=== PATIENT | female | born 1980 | race Caucasian/White ===

== ENCOUNTER 2017-08-04 18:52 | Emergency (ER) | payer BC ==
[2017-08-04 19:06] VITALS: BP 119/76
[2017-08-04] MEDS ORDERED: Ondansetron 4 MG/2 ML SDV IVPUSH ONE (20:29)
[2017-08-04] MEDS ORDERED: HYDROmorphone 1 MG/ML Syringe IVPUSH ONE (20:29)
[2017-08-04] MEDS ORDERED: Sodium Chloride 0.9% 10 ML Syringe FLUSH PRN (20:29)
--- NOTE | 2017-08-04 20:42 | EDM.PDOC ---
ED HPI GENERAL MEDICAL PROBLEM - General Chief Complaint: Upper Extremity Injury/Pain Stated Complaint: PAIN R SIDE OF FACE AND BODY Time Seen by Provider: 08/04/17 20:21 Source of Information: Reports: Patient History Limitations: Reports: No Limitations - History of Present Illness INITIAL COMMENTS - FREE TEXT/NARRATIVE: 37-year-old female presents for evaluation and treatment of right shoulder pain. Patient reports that the shoulder pain began last week. She was seen by her chiropractor on Saturday. States that she got some relief. She was told by her chiropractor that she has a lump to her right anterior chest wall. She did not appreciate this herself. She was instructed to follow-up with her primary care provider. Patient presents to the ER today is the right shoulder pain has significantly worsened. She also has not developed numbness and tingling to the right side of her face. Current symptoms include headache, neck pain, right-sided facial numbness and tingling and right shoulder pain. She denies any fevers, unintentional weight loss, unintentional weight gain, chest pain, shortness or breath or vomiting. No trauma to the chest or shoulder. Right Shoulder Pain Score (Numeric/FACES): 7 - Related Data Allergies Allergy/AdvReac Type Severity Reaction Status Date / Time ciprofloxacin [From Cipro] Allergy Hives Verified 08/04/17 19:03 ciprofloxacin HCl Allergy Hives Verified 08/04/17 19:03 [From Cipro] Penicillins Allergy Hives Verified 08/04/17 19:03 Home Meds: Home Meds Cholecalciferol (Vitamin D3) [Vitamin D3] 1,000 units PO DAILY 11/07/16 [History ] Pnv No.122/Iron/Folic Acid [ Multi Tablet] 1 each PO DAILY 11/07/16 [ History] Acetaminophen/oxyCODONE [Percocet 325-5 MG] 2 tab PO Q4H PRN #1 tablet 11/09/16 [Rx] Docusate Sodium [Colace] 100 mg PO Q12H PRN #1 cap 11/09/16 [Rx] Simethicone 80 mg PO PCBED tab.chew 11/09/16 [Rx] Past Medical History Cardiovascular History: Reports: None Respiratory History: Reports: None Gastrointestinal History: Reports: None Genitourinary History: Reports: Renal Calculus, UTI, 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 diab. with other , not this Hematologic History: Reports: Anemia - Past Surgical History GI Surgical History: Reports: Appendectomy, Bariatric Procedure, Cholecystectomy , Hernia Repair/Other Female Surgical History: Reports: Section - History Comment History Comment: 11/07/16 patient current medication list includes vitamens Social & Family History - Family History Family Medical History: Noncontributory - Tobacco Use Smoking Status *Q: Former Smoker Years of Tobacco use: 2 Used Tobacco, but Quit: Yes Month Tobacco Last Used: 01/27 Second Hand Smoke Exposure: No - Caffeine Use Caffeine Use: Reports: None - Alcohol Use Days Per Week of Alcohol Use: 0 - Recreational Drug Use Recreational Drug Use: No Review of Systems - Review of Systems Review Of Systems: See Below Constitutional: Denies: Fever Respiratory: Denies: Shortness of Breath Cardiovascular: Denies: Chest Pain GI/Abdominal: Reports: Nausea. Denies: Abdominal Pain, Vomiting Musculoskeletal: Reports: Neck Pain, Shoulder Pain (right) Skin: Reports: Lumps (right chest ) Neurological: Reports: Headache, Numbness (face), Tingling (face). Denies: Syncope ED EXAM, GENERAL - Physical Exam Exam: See Below Exam Limited By: No Limitations General Appearance: Alert, WD/WN, Moderate Distress Eye Exam: Bilateral Eye: Normal Inspection Ears: Normal External Exam Nose: Normal Inspection Throat/Mouth: Normal Inspection, Normal Voice, No Airway Compromise Head: Atraumatic, Normocephalic Neck: Normal Inspection, Non-Tender, Full Range of Motion Respiratory/Chest: No Respiratory Distress, Lungs Clear, Normal Breath Sounds Cardiovascular: Normal Peripheral Pulses, Regular Rate, Rhythm, No Murmur, Other (right anterior superior lateral chest tender to light palpation; no lump or mass appreciated to the chest or right axilla) GI/Abdominal: Soft, Non-Tender Back Exam: Normal Inspection Extremities: Normal Inspection, Normal Range of Motion, Normal Capillary Refill Neurological: Alert, Oriented, Normal Cognition Psychiatric: Normal Affect, Normal Mood Skin Exam: Warm, Dry, Normal Color EKG INTERPRETATION EKG Date: 08/04/17 Time: 21:10 Rhythm: NSR Rate (Beats/Min): 61 [place]: Normal P-Wave: Present QRS: Normal ST-T: Normal QT: Normal EKG Interpretation Comments: NSR at 61 bpm. First degree AV block. No ischemic changes. Reviewed by myself and Dr. Santos. Course - Vital Signs Last Recorded V/S: Last Vital Signs Temp 36.3 C 08/04/17 19:03 Pulse 77 08/04/17 19:03 Resp 17 08/04/17 19:03 BP 119/76 08/04/17 19:03 Pulse Ox 98 08/04/17 19:03 - Orders/Labs/Meds Labs: Laboratory Tests 08/04/17 08/04/17 08/04/17 Range/Units 21:10 21:10 21:10 WBC 9.28 (3.98-10.04) K/mm3 RBC 5.00 (3.98-5.22) M/mm3 Hgb 10.7 L (11.2-15.7) gm/L Hct 35.7 (34.1-44.9) % MCV 71.4 L (79.4-94.8) fl MCH 21.4 L (25.6-32.2) pg MCHC 30.0 L (32.2-35.5) g/dl RDW Std Deviation 44.5 (36.4-46.3) fL Plt Count 335 (182-369) K/mm3 MPV 10.5 (9.4-12.3) fl Neut % (Auto) 54.2 (34.0-71.1) % Lymph % (Auto) 33.5 (19.3-51.7) % [place] % (Auto) 8.7 (4.7-12.5) % Eos % (Auto) 3.1 (0.7-5.8) Baso % (Auto) 0.4 (0.1-1.2) % Neut # (Auto) 5.02 (1.56-6.13) K/mm3 Lymph # (Auto) 3.11 (1.18-3.74) K/mm3 [place] # (Auto) 0.81 H (0.24-0.36) K/mm3 Eos # (Auto) 0.29 (0.04-0.36) K/mm3 Baso # (Auto) 0.04 (0.01-0.08) K/mm3 Manual Slide Review Abnormal smear D-Dimer, Quantitative 0.38 (0.19-0.59) mg/L Sodium 141 (136-145) mEq/L Potassium 4.1 (3.5-5.1) mEq/L Chloride 105 (98-107) mEq/L Carbon Dioxide 25 (21-32) mEq/L Anion Gap 15.1 H (5-15) BUN 19 H (7-18) mg/dL Creatinine 0.7 (0.55-1.02) mg/dL Est Cr Clr Drug Dosing 109.08 mL/min Estimated GFR (MDRD) > 60 (>60) mL/min BUN/Creatinine Ratio 27.1 H (14-18) Glucose 104 (74-106) mg/dL Calcium 9.2 (8.5-10.1) mg/dL Magnesium 2.0 (1.8-2.4) mg/dl Total Bilirubin 0.2 (0.2-1.0) mg/dL AST 32 (15-37) U/L ALT 69 H (14-59) U/L Alkaline Phosphatase 121 H (46-116) U/L Troponin I < 0.017 (0.00-0.056) ng/mL Total Protein 7.4 (6.4-8.2) g/dl Albumin 3.5 (3.4-5.0) g/dl Globulin 3.9 gm/dL Albumin/Globulin Ratio 0.9 L (1-2) TSH 3rd Generation 5.034 H (0.358-3.74) uIU/mL Meds: Medications Discontinued Medications Generic Name Dose Route Start Last Admin Trade Name Freq PRN Reason Stop Dose Admin Diphenhydramine HCl 50 mg 08/04/17 23:23 08/04/17 23:30 Benadryl IVPUSH 08/04/17 23:24 50 mg ONETIME ONE Administration Haloperidol Lactate 2.5 mg 08/04/17 23:23 08/04/17 23:29 Haldol IVPUSH 08/04/17 23:24 2.5 mg ONETIME ONE Administration Hydromorphone HCl 1 mg 08/04/17 20:29 08/04/17 20:34 Dilaudid IVPUSH 08/04/17 20:30 1 mg ONETIME ONE Administration Ketorolac Tromethamine 30 mg 08/04/17 22:00 08/04/17 22:05 Toradol IVPUSH 08/04/17 22:01 30 mg ONETIME ONE Administration Ondansetron HCl 4 mg 08/04/17 20:29 08/04/17 20:47 Zofran IVPUSH 08/04/17 20:30 4 mg ONETIME ONE Administration Sodium Chloride 10 ml 08/04/17 20:29 08/04/17 21:54 Saline Flush FLUSH 10 ml ASDIRECTED PRN Administration Keep Vein Open - Radiology Interpretation Free Text/Narrative:: CT of the head without contrast impression per [facility] normal head/brain. CT of the cervical spine without contrast impression for [facility] normal cervical spine. chest x-ray shows no acute intrathoracic process. - Re-Assessments/Exams Free Text/Narrative Re-Assessment/Exam: 08/04/17 22:00 I reviewed the imaging, EKG and lab results with the patient. Reports that the shoulder pain has significantly improved but is starting to come back. She continues to have a headache. will try using Toradol at this time. 08/04/17 23:[address] Santos. Feels she is likely having an atypical migraine. Recommended haldol and benadryl Patient reports she continues to have a migraine despite the Dilaudid and Toradol. Will try Haldol and Benadryl. 08/04/17 23:33 At this point the patient feels comfortable going home. Discharge instructions as documented. Departure - Departure Time of Disposition: 23:33 Disposition: Home, Self-Care 01 Condition: Fair Clinical Impression: Atypical migraine - Discharge Information Instructions: Migraine Headache, [id number] Referrals: Lili Nielson NP [Primary Care Provider] - Forms: ED Department Discharge Additional Instructions: [id number] Tylenol or Motrin as needed for pain relief. Follow up with your primary care provider in 1-2 weeks for recheck of your symptoms and for further migraine management. Go home and rest in a dark quiet room. make sure you are drinking plenty of fluids. Please return to the ER if your symptoms change or worsen.
[2017-08-04] MEDS ORDERED: Ketorolac 30 MG/ML SDV IVPUSH ONE (22:00)
[2017-08-04] MEDS ORDERED: Haloperidol Lactate 5 MG/ML SDV IVPUSH ONE (23:23)
[2017-08-04] MEDS ORDERED: diphenhydrAMINE 50 MG/ML SDV IVPUSH ONE (23:23)
--- NOTE | 2017-08-05 11:30 | CT ---
Head CT Technique: Multiple axial sections through the brain were obtained. Intravenous contrast was not utilized. Comparison: No prior intracranial imaging is available. Findings: Ventricles along with basal cisterns and sulci over the convexities are within normal limits for the patient's age. No abnormal parenchymal densities are seen. No evidence of intracranial hemorrhage. No midline shift or mass effect is seen. Bone window settings were reviewed which show no acute calvarial abnormality. Visualized sinuses are clear. Impression: 1. Nothing acute is identified on noncontrast head CT exam. Diagnostic code #1 I agree with preliminary report issued by [facility] ([facility] report finalized on 08/04/17, 10:13 PM Central Time)
--- NOTE | 2017-08-05 11:30 | CT ---
CT cervical spine Technique: Multiple axial sections were obtained from above C1 inferiorly to the bottom of T1. Reconstructed sagittal and coronal images were reviewed. Comparison: No prior cervical spine imaging is available. Findings: Mastoid sinuses and middle ear cavities are clear. Posterior skull base is intact. Vertebral body heights and disc spaces are maintained. Vertebral bodies and posterior arches are intact. No bony central or bony neural foraminal stenosis is seen. No abnormal subluxation is seen. Mild kyphosis is noted on the reconstructed sagittal images which is likely positional. Slight calcification is noted within the anterior annulus at C4-C5 felt to be due to minimal degenerative change. Impression: 1. Nothing acute is identified on CT study of the cervical spine. Incidental finding as noted above. Diagnostic code #2 I agree with preliminary report issued by [facility] ([facility] report finalized on 08/04/17, 10:14 PM Central Time)
--- NOTE | 2017-08-05 11:30 | CR ---
Chest: Two views of the chest were obtained. Comparison: Prior chest x-ray of 01/05/16. Heart size and mediastinum are normal. Lungs are clear. Surgical clips are seen within the upper right abdomen. Slight degenerative change is noted within the spine. Minimal scoliosis is noted within the spine. Impression: 1. Incidental findings. Nothing acute is identified on two-view chest x-ray. Diagnostic code #2
== END 2017-08-04 23:40 | disposition home or self-care (01) ==
LOC: JD.ED 18:52
DX: G43.909 Migraine, unspecified, not intractable, without status migrainosus (principal); Z87.891 Personal history of nicotine dependence; Z88.0 Allergy status to penicillin; Z88.1 Allergy status to other antibiotic agents
CPT/HCPCS: 36415; 70450; 71020; 72125; 80053; 83735; 84443; 84484; 85025; 85379; 93005; 96374; 96375; 99284; J1170; J1200; J1630; J1885; J2405; J7050; 93010

== ENCOUNTER 2019-01-27 08:05 | Inpatient (IN) | payer BC ==
[~2019-01-27 08:05] MED LIST: Dexamethasone 4 MG/ML 5 ML MDV ONE; Lactated Ringers 1,000 ML IV SCH; Lactated Ringers 1,000 ML ONE; Lidocaine 1%/Sod Bicarbonate in NS 8.4% 1 ML Syringe IDERM PRN; Midazolam 1 MG/ML 2 ML SDV ONE; Ondansetron 4 MG/2 ML SDV ONE; Propofol 200 MG/20 ML SDV ONE; Rocuronium 50 MG/5 ML Vial ONE; Sodium Chloride 0.9% 10 ML Syringe FLUSH PRN; ceFAZolin 1 GM Vial ONE; fentaNYL 250 MCG/5 ML SDV ONE
[2019-01-27] MEDS ORDERED: Bupivacaine 0.5% 30 ML SDV ONE (08:27)
[2019-01-27] MEDS ORDERED: Lidocaine 1%/Sod Bicarbonate in NS 8.4% 1 ML Syringe IDERM ONE (08:42)
[2019-01-27] MEDS ORDERED: Lactated Ringers 1,000 ML IV SCH (08:45)
--- NOTE | 2019-01-27 08:52 | PCM.PREANE ---
Preanesthetic Assessment - Anesthesia/Transfusion/Family Hx Anesthesia History: Prior Anesthesia Without Reaction Family History of Anesthesia Reaction: No Transfusion History: No Prior Transfusion(s) - Review of Systems General: No Symptoms Pulmonary: No Symptoms, Other (Former Smoker 2016) Cardiovascular: No Symptoms Gastrointestinal: No Symptoms Neurological: No Symptoms Other: Reports: None (Morbid Obesity BMI 43), Thyroid Problems - Physical Assessment NPO Status Date: 01/26/19 NPO Status Time: 21:00 O2 Sat by Pulse Oximetry: 96 Respiratory Rate: 16 Vital Signs: Last Vital Signs Temp 36.6 C 01/27/19 08:15 Pulse 70 01/27/19 08:15 Resp 16 01/27/19 08:15 BP 100/56 L 01/27/19 08:15 Pulse Ox 96 01/27/19 08:15 ASA Class: 2 Mental Status: Alert & Oriented x3 Dentition: Reports: Normal Dentition, Partial (Removed) Thyro-Mental Finger Breadths: 3 Mouth Opening Finger Breadths: 3 ROM/Head Extension: Full Lungs: Clear to Auscultation, Normal Respiratory Effort Cardiovascular: Regular Rate, Regular Rhythm - Lab Values: Laboratory Last Values WBC 6.24 K/mm3 (3.98-10.04) 01/27/19 08:30 RBC 4.99 M/mm3 (3.98-5.22) 01/27/19 08:30 Hgb 11.3 gm/L (11.2-15.7) 01/27/19 08:30 Hct 37.2 % (34.1-44.9) 01/27/19 08:30 MCV 74.5 fl (79.4-94.8) L 01/27/19 08:30 MCH 22.6 pg (25.6-32.2) L 01/27/19 08:30 MCHC 30.4 g/dl (32.2-35.5) L 01/27/19 08:30 RDW Std Deviation 44.7 fL (36.4-46.3) 01/27/19 08:30 Plt Count 333 K/mm3 (182-369) 01/27/19 08:30 MPV 10.6 fl (9.4-12.3) 01/27/19 08:30 Neut % (Auto) 66.9 % (34.0-71.1) 01/27/19 08:30 Lymph % (Auto) 20.7 % (19.3-51.7) 01/27/19 08:30 [place] % (Auto) 8.5 % (4.7-12.5) 01/27/19 08:30 Eos % (Auto) 3.4 (0.7-5.8) 01/27/19 08:30 Baso % (Auto) 0.3 % (0.1-1.2) 01/27/19 08:30 Neut # (Auto) 4.18 K/mm3 (1.56-6.13) 01/27/19 08:30 Lymph # (Auto) 1.29 K/mm3 (1.18-3.74) 01/27/19 08:30 [place] # (Auto) 0.53 K/mm3 (0.24-0.36) H 01/27/19 08:30 Eos # (Auto) 0.21 K/mm3 (0.04-0.36) 01/27/19 08:30 Baso # (Auto) 0.02 K/mm3 (0.01-0.08) 01/27/19 08:30 - Allergies Allergies/Adverse Reactions: Allergies Allergy/AdvReac Type Severity Reaction Status Date / Time ciprofloxacin [From Cipro] Allergy Hives Verified 01/26/19 12:20 ciprofloxacin HCl Allergy Hives Verified 01/26/19 12:20 [From Cipro] Penicillins Allergy Hives Verified 01/26/19 12:20 - Anesthesia Plan Pre-Op Medication Ordered: Anxiolytic - Acknowledgements Anesthesia Type Planned: General Anesthesia Pt an Appropriate Candidate for the Planned Anesthesia: Yes Alternatives and Risks of Anesthesia Discussed w Pt/Guardian: Yes Pt/Guardian Understands and Agrees with Anesthesia Plan: Yes PreAnesthesia Questionnaire HEENT History: Reports: None Cardiovascular History: Reports: None Respiratory History: Reports: None Gastrointestinal History: Reports: None Genitourinary History: Reports: Renal Calculus, UTI, 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 diab. with other , not this Hematologic History: Reports: Anemia Immunologic History: Reports: None Oncologic (Cancer) History: Reports: None Dermatologic History: Reports: None - Past Surgical History Head Surgeries/Procedures: Reports: None HEENT Surgical History: Reports: Tonsillectomy Cardiovascular Surgical History: Reports: None Respiratory Surgical History: Reports: None GI Surgical History: Reports: Appendectomy, Bariatric Procedure, Cholecystectomy , Hernia Repair/Other Female Surgical History: Reports: Section Endocrine Surgical History: Reports: None Neurological Surgical History: Reports: None Musculoskeletal Surgical History: Reports: None Oncologic Surgical History: Reports: None Dermatological Surgical History: Reports: None - History Comment History Comment: 11/07/16 patient current medication list includes vitamens - SUBSTANCE USE Smoking Status *Q: Former Smoker Recreational Drug Use History: No - HOME MEDS Home Medications: Home Meds Ca Carbonate/Vitamin D3/Vit K [Calcium + D Soft Chewable Tab] 1 tab PO BID 01/26 [History] Cyanocobalamin/Folic AC/Vit B6 [Folbee] 1 tab PO DAILY 01/26/19 [History] Ferrous Sulfate [Iron] 325 mg PO DAILY 01/26/19 [History] Levothyroxine [Synthroid] 50 mcg PO DAILY 01/26/19 [History] Multivitamin [Poly-Vitamin] 1 tab PO DAILY 01/26/19 [History] - CURRENT (IN HOUSE) MEDS Current Meds: Current Medications Lactated Ringer's (Ringers, Lactated) 1,000 mls @ 125 mls/hr IV ASDIRECTED EVERARDO Stop: 01/27/19 23:00 Sodium Chloride (Saline Flush) 10 ml FLUSH ASDIRECTED PRN PRN Reason: Keep Vein Open Stop: 01/27/19 18:00 Discontinued Medications Bupivacaine HCl (Marcaine 0.5%) Confirm Administered Dose 30 ml .ROUTE .STK-MED ONE Stop: 01/27/19 08:28 Cefazolin Sodium (Ancef) Confirm Administered Dose 2 gm .ROUTE .STK-MED ONE Stop: 01/27/19 07:33 Dexamethasone (Dexamethasone) Confirm Administered Dose 20 mg .ROUTE .STK-MED ONE Stop: 01/27/19 07:36 Fentanyl (Sublimaze) Confirm Administered Dose 250 mcg .ROUTE .STK-MED ONE Stop: 01/27/19 07:34 Lactated Ringer's (Ringers, Lactated) Confirm Administered Dose 1,000 mls @ as directed .ROUTE .STK-MED ONE Stop: 01/27/19 07:33 Lidocaine/Sodium Bicarbonate (Buffered Lidocaine 1% In Ns 8.4%) 1 ml IDERM ONETIME ONE Stop: 01/27/19 08:43 Midazolam HCl (Versed 1 Mg/Ml) Confirm Administered Dose 2 mg .ROUTE .STK-MED ONE Stop: 01/27/19 07:34 Ondansetron HCl (Zofran) Confirm Administered Dose 4 mg .ROUTE .STK-MED ONE Stop: 01/27/19 07:33 Propofol (Diprivan 20 Ml) Confirm Administered Dose 400 mg .ROUTE .STK-MED ONE Stop: 01/27/19 07:34 Rocuronium [place] (Zemuron) Confirm Administered Dose 50 mg .ROUTE .STK-MED ONE Stop: 01/27/19 07:33
[2019-01-27] MEDS ORDERED: ceFAZolin 1 GM Vial ONE (10:11)
[2019-01-27] MEDS ORDERED: Ketamine 500 mg/10 ML MDV ONE (10:24)
[2019-01-27] MEDS ORDERED: HYDROmorphone 0.5 MG/0.5 ML Syringe ONE ×2 (10:24→11:31)
[2019-01-27] MEDS ORDERED: Neostigmine Methylsulfate 1 MG/ML 5 ML Syringe ONE (11:29)
[2019-01-27] MEDS ORDERED: Ketorolac 30 MG/ML SDV ONE (11:38)
--- NOTE | 2019-01-27 12:00 | PCM.OPNOTE ---
- General Post-Op/Procedure Note Date of Surgery/Procedure: 01/27/19 Operative Procedure(s): Total abdominal hysterectomy bilateral salpingectomy and (removal of her remaining fallopian tube tissue patient had had previous tubal ligation. Neither ovary removed.) Pre Op Diagnosis: Menorrhagia irregular menstrual periods, premenopausal menorrhagia Post-Op Diagnosis: Same plus adhesions to the abdominal wall from the omentum. 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 Difficult surgery needed to assist in retraction and in surgery itself and to decrease comorbidity and mortality Role of Broiler Chef Or Cook: . Difficult surgery needed to assist in retraction and in surgery itself and to decrease comorbidity and mortality Fluid Replacement, Intraop: 2,000 Output, Urine Amount: 300 EBL in mLs: 75 Drain/Tube Comments:: Vergara Complications: None Condition: Good Free Text/Narrative:: Patient was transported to the operating room and placed under general anesthesia with endotracheal intubation. Examination under anesthesia performed and decision made to proceed anteriorly (patient had previous history of adhesions significant last per patient) patient had also had multiple surgeries including gastric bypass cholecystectomy and appendectomy and concern for significant adhesions encountered at laparoscopy and possible bowel or bladder damage. Patient had SCDs in place and functioning prior surgery given 3 g of Ancef intravenously prior surgery. The patient was prepared and draped in a sterile fashion after placing the traxi draped to allow retraction of the panniculus. Pfannenstiel incision was made after injecting 20 mL of 0.5% Marcaine in the area of the planned incision. The peritoneal cavity was entered with some difficulty due to the adhesions of the omentum to the anterior abdominal wall (this could've caused significant problems at laparoscopy). The large Keanu retractor was placed and bowel was packed away with moistened lap tapes. The uterus was grasped and elevated and beginning on the right side the remaining portion of fallopian tube left after tubal ligation was removed utilizing Enseal. The right ovary and left ovary were not removed. Proceeding in a pedicle fashion caudad beginning on the right side crossclamping activating and incising utilizing Enseal proceeding towards the reflection of the bladder flap at the lower uterine segment. This was then incised with Metzenbaum scissors there were some dense adhesions of the uterus to the pelvic sidewall the Ross lysed with sharp and blunt dissection. Utilizing sponge stick bladder flap was pushed caudad. And uterine vasculature was crossclamped activated and incised with the Enseal. On the left side the remaining portion of fallopian tube left after tubal ligation was removed utilizing Enseal. Crossclamping triple pedicle and proceeding caudad utilizing Enseal and lysing adhesions with blunt and sharp section proceeding caudad until the uterosacral ligaments were able to be identified easily. Crossclamping with Jose clamps bilaterally and incising with Gela scissors the uterus cervix and removed. Utilizing 0 Monocryl at the angles where the cardinal ligament and uterosacral bundles are and then running locking suture of #0 Vicryl running locking suture closed the vaginal cuff anterior and posterior where the angle sutures had not closed the vagina already. Irrigation was carried out several small bleeders were encountered and electrocoagulated with some generalized oozing FloSeal was instilled to prevent heavy bleeding. Sponge needle pack and aspirin count correct 2 and the abdominal cavity was closed with #1 PDS running suture for the anterior fascia. Several interrupted 0 Monocryl to approximate the adipose tissue and the skin was closed running subcuticular 30 Param needle Monocryl Dermabond Preneo applied and Telfa pad and 4 x 4's. The traxi great removed. Patient was transported postanesthesia care unit in satisfactory condition no blood transfusions were required at this time patient stable. She received 30 mg of ketorolac 1136 hrs. This note was created, at least in part, by the use of [employer] voice dictation system. Inadvertent typographical errors, due to software recognition problems, may exist.
[2019-01-27] MEDS ORDERED: fentaNYL 100 MCG/2 ML SDV IVPUSH PRN (12:20)
[2019-01-27] MEDS ORDERED: HYDROmorphone 0.5 MG/0.5 ML Syringe IVPUSH PRN (12:20)
[2019-01-27] MEDS ORDERED: Ondansetron 4 MG/2 ML SDV IVPUSH PRN ×2 (12:20→13:18)
[2019-01-27] MEDS ORDERED: diphenhydrAMINE 50 MG/ML SDV IVPUSH PRN (12:20)
--- NOTE | 2019-01-27 12:22 | PCM.POSTAN ---
POST ANESTHESIA ASSESSMENT - MENTAL STATUS Mental Status: Alert, Oriented - VITAL SIGNS Pulse Rate: 66 SaO2: 100 Resp Rate: 9 Blood Pressure: 111/61 Temperature: 36.4 C - RESPIRATORY Respiratory Status: Respiratory Rate WNL, Airway Patent, O2 Saturation Stable, Supplemental Oxygen - CARDIOVASCULAR CV Status: Pulse Rate WNL, Blood Pressure Stable - GASTROINTESTINAL GI Status: No Symptoms - PAIN Pain Score: 0 - POST OP HYDRATION Hydration Status: Adequate & Stable
[2019-01-27] MEDS ORDERED: Acetaminophen 325 MG Tab PO PRN (13:18)
[2019-01-27] MEDS: Acetaminophen/oxyCODONE 325-5 MG Tab PO PRN (13:39)
[2019-01-27] MEDS ORDERED: Morphine 10 MG/ML Syringe IM PRN (15:23)
[2019-01-27] MEDS: hydrOXYzine HCl 25 MG/ML SDV IM PRN ×2 (16:01→22:13)
[2019-01-27] MEDS: Morphine 10 MG/ML SDV IM PRN ×2 (16:01→22:13)
[2019-01-27] MEDS ORDERED: Ketorolac 30 MG/ML SDV IVPUSH SCH (18:00)
[2019-01-27] MEDS: Ketorolac 30 MG/ML SDV IVPUSH SCH (20:03)
[2019-01-27] MEDS: Docusate Sodium 100 MG Cap PO SCH (20:08)
[2019-01-28] MEDS: Ketorolac 30 MG/ML SDV IVPUSH SCH ×2 (01:57→08:05)
[2019-01-28] MEDS: Acetaminophen/oxyCODONE 325-5 MG Tab PO PRN ×2 (04:34→08:52)
[2019-01-28] MEDS ORDERED: Levothyroxine 50 MCG Tab PO SCH (07:00)
[2019-01-28 08:05] VITALS: BP 116/62
[2019-01-28] MEDS: Docusate Sodium 100 MG Cap PO SCH (08:05)
--- NOTE | 2019-01-28 09:07 | PCM.DCSUM1 ---
Discharge Summary - Hospital Course Free Text/Narrative:: [facility] Post-Op/Procedure Note Patient Name: MARIA ISABEL CANTOR Date of : 84 Patient Status: Inpatient Attending Provider: William Hinson Date: 01/27/19 11:51 Initialization Date: 01/27/19 11:51 - General Post-Op/Procedure Note Date of Surgery/Procedure: 01/27/19 Operative Procedure(s): Total abdominal hysterectomy bilateral salpingectomy and (removal of her remaining fallopian tube tissue patient had had previous tubal ligation. Neither ovary removed.) Pre Op Diagnosis: Menorrhagia irregular menstrual periods, premenopausal menorrhagia Post-Op Diagnosis: Same plus adhesions to the abdominal wall from the omentum. Primary Surgeon: William Hinson Secondary Surgeon: Dean Harrell Anesthesia Provider: Jaye Bray Reason Corporate Scheduler Was Necessary: . Difficult surgery needed to assist in retraction and in surgery itself and to decrease comorbidity and mortality Role of Corporate Scheduler: . Difficult surgery needed to assist in retraction and in surgery itself and to decrease comorbidity and mortality Fluid Replacement, Intraop: 2,000 Output, Urine Amount: 300 EBL in mLs: 75 Drain/Tube Comments:: Vergara Complications: None Condition: Good Free Text/Narrative:: Patient was transported to the operating room and placed under general anesthesia with endotracheal intubation. Examination under anesthesia performed and decision made to proceed anteriorly (patient had previous history of adhesions significant last per patient) patient had also had multiple surgeries including gastric bypass cholecystectomy and appendectomy and concern for significant adhesions encountered at laparoscopy and possible bowel or bladder damage. Patient had SCDs in place and functioning prior surgery given 3 g of Ancef intravenously prior surgery. The patient was prepared and draped in a sterile fashion after placing the traxi draped to allow retraction of the panniculus. Pfannenstiel incision was made after injecting 20 mL of 0.5% Marcaine in the area of the planned incision. The peritoneal cavity was entered with some difficulty due to the adhesions of the omentum to the anterior abdominal wall (this could've caused significant problems at laparoscopy). The large Keanu retractor was placed and bowel was packed away with moistened lap tapes. The uterus was grasped and elevated and beginning on the right side the remaining portion of fallopian tube left after tubal ligation was removed utilizing Enseal. The right ovary and left ovary were not removed. Proceeding in a pedicle fashion caudad beginning on the right side crossclamping activating and incising utilizing Enseal proceeding towards the reflection of the bladder flap at the lower uterine segment. This was then incised with Metzenbaum scissors there were some dense adhesions of the uterus to the pelvic sidewall the Ross lysed with sharp and blunt dissection. Utilizing sponge stick bladder flap was pushed caudad. And uterine vasculature was crossclamped activated and incised with the Enseal. On the left side the remaining portion of fallopian tube left after tubal ligation was removed utilizing Enseal. Crossclamping triple pedicle and proceeding caudad utilizing Enseal and lysing adhesions with blunt and sharp section proceeding caudad until the uterosacral ligaments were able to be identified easily. Crossclamping with Jose clamps bilaterally and incising with Gela scissors the uterus cervix and removed. Utilizing 0 Monocryl at the angles where the cardinal ligament and uterosacral bundles are and then running locking suture of #0 Vicryl running locking suture closed the vaginal cuff anterior and posterior where the angle sutures had not closed the vagina already. Irrigation was carried out several small bleeders were encountered and electrocoagulated with some generalized oozing FloSeal was instilled to prevent heavy bleeding. Sponge needle pack and aspirin count correct 2 and the abdominal cavity was closed with #1 PDS running suture for the anterior fascia. Several interrupted 0 Monocryl to approximate the adipose tissue and the skin was closed running subcuticular 30 Param needle Monocryl Dermabond Preneo applied and Telfa pad and 4 x 4's. The traxi great removed. Patient was transported postanesthesia care unit in satisfactory condition no blood transfusions were required at this time patient stable. She received 30 mg of ketorolac 1136 hrs. This note was created, at least in part, by the use of [employer] voice dictation system. Inadvertent typographical errors, due to software recognition problems, may exist. Patient admitted overnight for pain management. Doing well this morning will be dismissed taking Percocet one every 6 hours or 2 every 8 hours 5 dispense [facility]. HPI Initial Comments: [facility] Post-Op/Procedure Note Patient Name: MARIA ISABEL CANTOR Date of : 84 Patient Status: Inpatient Attending Provider: William Hinson Date: 01/27/19 11:51 Initialization Date: 01/27/19 11:51 - General Post-Op/Procedure Note Date of Surgery/Procedure: 01/27/19 Operative Procedure(s): Total abdominal hysterectomy bilateral salpingectomy and (removal of her remaining fallopian tube tissue patient had had previous tubal ligation. Neither ovary removed.) Pre Op Diagnosis: Menorrhagia irregular menstrual periods, premenopausal menorrhagia Post-Op Diagnosis: Same plus adhesions to the abdominal wall from the omentum. Primary Surgeon: William Hinson Secondary Surgeon: Dean Harrell Anesthesia Provider: Jaye Bray Reason Corporate Scheduler Was Necessary: . Difficult surgery needed to assist in retraction and in surgery itself and to decrease comorbidity and mortality Role of Corporate Scheduler: . Difficult surgery needed to assist in retraction and in surgery itself and to decrease comorbidity and mortality Fluid Replacement, Intraop: 2,000 Output, Urine Amount: 300 EBL in mLs: 75 Drain/Tube Comments:: Vergara Complications: None Condition: Good Free Text/Narrative:: Patient was transported to the operating room and placed under general anesthesia with endotracheal intubation. Examination under anesthesia performed and decision made to proceed anteriorly (patient had previous history of adhesions significant last per patient) patient had also had multiple surgeries including gastric bypass cholecystectomy and appendectomy and concern for significant adhesions encountered at laparoscopy and possible bowel or bladder damage. Patient had SCDs in place and functioning prior surgery given 3 g of Ancef intravenously prior surgery. The patient was prepared and draped in a sterile fashion after placing the traxi draped to allow retraction of the panniculus. Pfannenstiel incision was made after injecting 20 mL of 0.5% Marcaine in the area of the planned incision. The peritoneal cavity was entered with some difficulty due to the adhesions of the omentum to the anterior abdominal wall (this could've caused significant problems at laparoscopy). The large Keanu retractor was placed and bowel was packed away with moistened lap tapes. The uterus was grasped and elevated and beginning on the right side the remaining portion of fallopian tube left after tubal ligation was removed utilizing Enseal. The right ovary and left ovary were not removed. Proceeding in a pedicle fashion caudad beginning on the right side crossclamping activating and incising utilizing Enseal proceeding towards the reflection of the bladder flap at the lower uterine segment. This was then incised with Metzenbaum scissors there were some dense adhesions of the uterus to the pelvic sidewall the Ross lysed with sharp and blunt dissection. Utilizing sponge stick bladder flap was pushed caudad. And uterine vasculature was crossclamped activated and incised with the Enseal. On the left side the remaining portion of fallopian tube left after tubal ligation was removed utilizing Enseal. Crossclamping triple pedicle and proceeding caudad utilizing Enseal and lysing adhesions with blunt and sharp section proceeding caudad until the uterosacral ligaments were able to be identified easily. Crossclamping with Jose clamps bilaterally and incising with Gela scissors the uterus cervix and removed. Utilizing 0 Monocryl at the angles where the cardinal ligament and uterosacral bundles are and then running locking suture of #0 Vicryl running locking suture closed the vaginal cuff anterior and posterior where the angle sutures had not closed the vagina already. Irrigation was carried out several small bleeders were encountered and electrocoagulated with some generalized oozing FloSeal was instilled to prevent heavy bleeding. Sponge needle pack and aspirin count correct 2 and the abdominal cavity was closed with #1 PDS running suture for the anterior fascia. Several interrupted 0 Monocryl to approximate the adipose tissue and the skin was closed running subcuticular 30 Param needle Monocryl Dermabond Preneo applied and Telfa pad and 4 x 4's. The traxi great removed. Patient was transported postanesthesia care unit in satisfactory condition no blood transfusions were required at this time patient stable. She received 30 mg of ketorolac 1136 hrs. This note was created, at least in part, by the use of [employer] voice dictation system. Inadvertent typographical errors, due to software recognition problems, may exist. Patient admitted overnight for pain management. Doing well this morning will be dismissed taking Percocet one every 6 hours or 2 every 8 hours dispense [facility]. Brief History: [facility] . Post-Op/Procedure Note. Patient Name: MARIA ISABEL CANTOR Record Number: [id number]. Date of : Patient Status: Inpatient. Attending Provider: William Hinsonount Number: [id number]. Date: 01/27/19 11:51Initialization Date: 01/27/19 11:51. - General Post-Op/Procedure Note. Date of Surgery/Procedure: 01/27/19. Operative Procedure(s): Total abdominal hysterectomy bilateral salpingectomy and (removal of her remaining fallopian tube tissue patient had had previous tubal ligation. Neither ovary removed.). Pre Op Diagnosis: Menorrhagia irregular menstrual periods, premenopausal menorrhagia. Post-Op Diagnosis: Same plus adhesions to the abdominal wall from the omentum. Primary Surgeon: William Hinson. Secondary Surgeon: Dean Harrell. Anesthesia Provider: Jaye Bray. Reason Corporate Scheduler Was Necessary: . Difficult surgery needed to assist in retraction and in surgery itself and to decrease comorbidity and mortality. Role of Corporate Scheduler: . Difficult surgery needed to assist in retraction and in surgery itself and to decrease comorbidity and mortality. Fluid Replacement, Intraop: 2,000. Output, Urine Amount: 300. EBL in mLs: 75. Drain/Tube Comments:: Vergara. Complications: None. Condition: Good. Free Text/Narrative:: Patient was transported to the operating room and placed under general anesthesia with endotracheal intubation. Examination under anesthesia performed and decision made to proceed anteriorly (patient had previous history of adhesions significant last per patient) patient had also had multiple surgeries including gastric bypass cholecystectomy and appendectomy and concern for significant adhesions encountered at laparoscopy and possible bowel or bladder damage. Patient had SCDs in place and functioning prior surgery given 3 g of Ancef intravenously prior surgery. The patient was prepared and draped in a sterile fashion after placing the traxi draped to allow retraction of the panniculus. Pfannenstiel incision was made after injecting 20 mL of 0.5% Marcaine in the area of the planned incision. The peritoneal cavity was entered with some difficulty due to the adhesions of the omentum to the anterior abdominal wall (this could've caused significant problems at laparoscopy). The large Keanu retractor was placed and bowel was packed away with moistened lap tapes. The uterus was grasped and elevated and beginning on the right side the remaining portion of fallopian tube left after tubal ligation was removed utilizing Enseal. The right ovary and left ovary were not removed. Proceeding in a pedicle fashion caudad beginning on the right side crossclamping activating and incising utilizing Enseal proceeding towards the reflection of the bladder flap at the lower uterine segment. This was then incised with Metzenbaum scissors there were some dense adhesions of the uterus to the pelvic sidewall the Ross lysed with sharp and blunt dissection. Utilizing sponge stick bladder flap was pushed caudad. And uterine vasculature was crossclamped activated and incised with the Enseal. On the left side the remaining portion of fallopian tube left after tubal ligation was removed utilizing Enseal. Crossclamping triple pedicle and proceeding caudad utilizing Enseal and lysing adhesions with blunt and sharp section proceeding caudad until the uterosacral ligaments were able to be identified easily. Crossclamping with Jose clamps bilaterally and incising with Gela scissors the uterus cervix and removed. Utilizing 0 Monocryl at the angles where the cardinal ligament and uterosacral bundles are and then running locking suture of #0 Vicryl running locking suture closed the vaginal cuff anterior and posterior where the angle sutures had not closed the vagina already. Irrigation was carried out several small bleeders were encountered and electrocoagulated with some generalized oozing FloSeal was instilled to prevent heavy bleeding. Sponge needle pack and aspirin count correct 2 and the abdominal cavity was closed with #1 PDS running suture for the anterior fascia. Several interrupted 0 Monocryl to approximate the adipose tissue and the skin was closed running subcuticular 30 Param needle Monocryl Dermabond Preneo applied and Telfa pad and 4 x 4's. The traxi great removed. Patient was transported postanesthesia care unit in satisfactory condition no blood transfusions were required at this time patient stable. She received 30 mg of ketorolac 1136 hrs. This note was created, at least in part, by the use of [employer] voice dictation system. Inadvertent typographical errors, due to software recognition problems, may exist. Patient admitted overnight for pain management. Doing well this morning will be dismissed taking Percocet one every 6 hours or 2 every 8 hours [id number] dispense [facility]. Diagnosis: Stroke: No - Discharge Data Discharge Date: 01/28/19 Discharge Disposition: Home, Self-Care 01 Condition: Good - Discharge Diagnosis/Problem(s) (1) Menorrhagia with irregular cycle SNOMED Code(s): 301451583 ICD Code: N92.1 - EXCESSIVE AND FREQUENT MENSTRUATION WITH IRREGULAR CYCLE Status: Acute Current Visit: Yes - Patient Summary/Data Operative Procedure(s) Performed: Total abdominal hysterectomy bilateral salpingectomy and (removal of her remaining fallopian tube tissue patient had had previous tubal ligation. Neither ovary removed.) Complications: None Consults: None Hospital Course: Uneventful - Patient Instructions Diet: Usual Diet as Tolerated Driving: Do Not Drive (2 weeks) Showering/Bathing: May Shower, No Tub Bathing/Swimming (6 weeks) Wound/Incision Care: Keep Operative Site/Wound Site Clean and Dry Notify Provider of: Fever, Increased Pain, Swelling and Redness, Drainage, Nausea and/or Vomiting - Discharge Plan *PRESCRIPTION DRUG MONITORING PROGRAM REVIEWED*: Yes *COPY OF PRESCRIPTION DRUG MONITORING REPORT IN PATIENT ROSA: Yes Prescriptions/Med Rec: Acetaminophen/oxyCODONE [Percocet 325-5 MG] 2 tab PO Q8H PRN #50 tablet PRN Reason: Pain (Moderate 4-6) Home Medications: Home Meds Ca Carbonate/Vitamin D3/Vit K [Calcium + D Soft Chewable Tab] 1 tab PO BID 01/26 [History] Cyanocobalamin/Folic AC/Vit B6 [Folbee] 1 tab PO DAILY 01/26/19 [History] Ferrous Sulfate [Iron] 325 mg PO DAILY 01/26/19 [History] Multivitamin [Poly-Vitamin] 1 tab PO DAILY 01/26/19 [History] Acetaminophen/oxyCODONE [Percocet 325-5 MG] 2 tab PO Q8H PRN #50 tablet [Rx] Referrals: William Hinson MD [Physician] - (Patient to make appointment to see me on Saturday02/10/19) - Discharge Summary/Plan Comment DC Time >30 min.: No - Patient Data Vitals - Most Recent: Last Vital Signs Temp 98.1 F 01/28/19 07:53 Pulse 82 01/28/19 07:53 Resp 14 01/28/19 07:53 BP 116/62 01/28/19 07:53 Pulse Ox 97 01/28/19 07:53 Weight - Most Recent: 274 lb I&O - Last 24 hours: Intake & Output 01/27/19 01/28/19 01/28/19 22:59 06:59 14:59 Intake Total 350 Balance 350 Lab Results - Last 24 hrs: Laboratory Results - last 24 hr 01/27/19 01/27/19 01/27/19 Range/Units 08:30 08:30 08:30 WBC (3.98-10.04) K/mm3 RBC (3.98-5.22) M/mm3 Hgb (11.2-15.7) gm/L Hct (34.1-44.9) % MCV (79.4-94.8) fl MCH (25.6-32.2) pg MCHC (32.2-35.5) g/dl RDW Std Deviation (36.4-46.3) fL Plt Count (182-369) K/mm3 MPV (9.4-12.3) fl Neut % (Auto) (34.0-71.1) % Lymph % (Auto) (19.3-51.7) % [place] % (Auto) (4.7-12.5) % Eos % (Auto) (0.7-5.8) Baso % (Auto) (0.1-1.2) % Neut # (Auto) (1.56-6.13) K/mm3 Lymph # (Auto) (1.18-3.74) K/mm3 [place] # (Auto) (0.24-0.36) K/mm3 Eos # (Auto) (0.04-0.36) K/mm3 Baso # (Auto) (0.01-0.08) K/mm3 Manual Slide Review Abnormal smear HCG, Qual Negative (NEGATIVE) Blood Type A POSITIVE Gel Antibody Screen Negative Crossmatch See Detail 01/28/19 Range/Units 05:40 WBC 9.65 (3.98-10.04) K/mm3 RBC 4.21 (3.98-5.22) M/mm3 Hgb 9.4 L D (11.2-15.7) gm/L Hct 31.8 L (34.1-44.9) % MCV 75.5 L (79.4-94.8) fl MCH 22.3 L (25.6-32.2) pg MCHC 29.6 L (32.2-35.5) g/dl RDW Std Deviation 44.3 (36.4-46.3) fL Plt Count 305 (182-369) K/mm3 MPV 10.8 (9.4-12.3) fl Neut % (Auto) 69.2 (34.0-71.1) % Lymph % (Auto) 19.9 (19.3-51.7) % [place] % (Auto) 8.3 (4.7-12.5) % Eos % (Auto) 2.2 (0.7-5.8) Baso % (Auto) 0.2 (0.1-1.2) % Neut # (Auto) 6.68 H (1.56-6.13) K/mm3 Lymph # (Auto) 1.92 (1.18-3.74) K/mm3 [place] # (Auto) 0.80 H (0.24-0.36) K/mm3 Eos # (Auto) 0.21 (0.04-0.36) K/mm3 Baso # (Auto) 0.02 (0.01-0.08) K/mm3 Manual Slide Review Abnormal smear HCG, Qual (NEGATIVE) Blood Type Gel Antibody Screen Crossmatch Med Orders - Current: Current Medications Acetaminophen (Tylenol) 650 mg PO Q4H PRN PRN Reason: Pain (mild 1-3) Docusate Sodium (Colace) 100 mg PO BID [facility] Last Admin: 01/28/19 08:05 Dose: 100 mg Hydroxyzine HCl (Vistaril) 50 mg IM Q6H PRN PRN Reason: Pain Last Admin: 01/27/19 22:13 Dose: 50 mg Levothyroxine Sodium (Synthroid) 50 mcg PO DAILY@0700 [facility] Last Admin: 01/28/19 06:59 Dose: 50 mcg Morphine Sulfate (Morphine) 10 mg IM Q6HR PRN PRN Reason: Pain Last Admin: 01/27/19 22:13 Dose: 10 mg Ondansetron HCl (Zofran) 4 mg IVPUSH Q4H PRN PRN Reason: Nausea/Vomiting Oxycodone/Acetaminophen (Percocet 325-5 Mg) 2 tab PO Q4H PRN PRN Reason: Pain (moderate 4-6) Last Admin: 01/28/19 08:52 Dose: 2 tab Discontinued Medications Bupivacaine HCl (Marcaine 0.5%) Confirm Administered Dose 30 ml .ROUTE .STK-MED ONE Stop: 01/27/19 08:28 Last Admin: 01/27/19 10:27 Dose: 20 ml Cefazolin Sodium (Ancef) Confirm Administered Dose 2 gm .ROUTE .STK-MED ONE Stop: 01/27/19 07:33 Cefazolin Sodium (Ancef) Confirm Administered Dose 1 gm .ROUTE .STK-MED ONE Stop: 01/27/19 10:12 Dexamethasone (Dexamethasone) Confirm Administered Dose 20 mg .ROUTE .STK-MED ONE Stop: 01/27/19 07:36 Diphenhydramine HCl (Benadryl) 25 mg IVPUSH Q6H PRN PRN Reason: Pruritis Stop: 01/27/19 18:00 Fentanyl (Sublimaze) Confirm Administered Dose 250 mcg .ROUTE .STK-MED ONE Stop: 01/27/19 07:34 Fentanyl (Sublimaze) 50 mcg IVPUSH Q5M PRN PRN Reason: Pain Stop: 01/27/19 18:00 Glycopyrrolate () Confirm Administered Dose 1 mg .ROUTE .STK-MED ONE Stop: 01/27/19 11:30 Hydromorphone HCl (Dilaudid) Confirm Administered Dose 0.5 mg .ROUTE .STK-MED ONE Stop: 01/27/19 10:25 Hydromorphone HCl (Dilaudid) Confirm Administered Dose 0.5 mg .ROUTE .STK-MED ONE Stop: 01/27/19 11:32 Hydromorphone HCl (Dilaudid) 0.5 mg IVPUSH Q15M PRN PRN Reason: severe pain Stop: 01/27/19 18:00 Lactated Ringer's (Ringers, Lactated) Confirm Administered Dose 1,000 mls @ as directed .ROUTE .STK-MED ONE Stop: 01/27/19 07:33 Lactated Ringer's (Ringers, Lactated) 1,000 mls @ 125 mls/hr IV ASDIRECTED EVERARDO Stop: 01/27/19 23:00 Last Admin: 01/27/19 08:30 Dose: 125 mls/hr Ketamine HCl (Ketalar) Confirm Administered Dose 500 mg .ROUTE .STK-MED ONE Stop: 01/27/19 10:25 Ketorolac Tromethamine (Toradol) Confirm Administered Dose 30 mg .ROUTE .STK- MED ONE Stop: 01/27/19 11:39 Ketorolac Tromethamine (Toradol) 30 mg IVPUSH Q6H [facility] Stop: 01/28/19 06:01 Last Admin: 01/27/19 20:22 Dose: Not Given Ketorolac Tromethamine (Toradol) 30 mg IVPUSH Q6H [facility] Stop: 01/28/19 08:01 Last Admin: 01/28/19 08:05 Dose: 30 mg Lidocaine/Sodium Bicarbonate (Buffered Lidocaine 1% In Ns 8.4%) 1 ml IDERM ONETIME ONE Stop: 01/27/19 08:43 Last Admin: 01/27/19 08:29 Dose: 1 ml Midazolam HCl (Versed 1 Mg/Ml) Confirm Administered Dose 2 mg .ROUTE .STK-MED ONE Stop: 01/27/19 07:34 Morphine Sulfate (Morphine) 10 mg IM Q6HR PRN PRN Reason: Pain Neostigmine Methylsulfate (Neostigmine) Confirm Administered Dose 5 mg .ROUTE .STK-MED ONE Stop: 01/27/19 11:30 Ondansetron HCl (Zofran) Confirm Administered Dose 4 mg .ROUTE .STK-MED ONE Stop: 01/27/19 07:33 Ondansetron HCl (Zofran) 4 mg IVPUSH ONETIME PRN PRN Reason: Nausea/Vomiting Stop: 01/27/19 18:00 Propofol (Diprivan 20 Ml) Confirm Administered Dose 400 mg .ROUTE .STK-MED ONE Stop: 01/27/19 07:34 Rocuronium Dahlgren (Zemuron) Confirm Administered Dose 50 mg .ROUTE .STK-MED ONE Stop: 01/27/19 07:33 Sodium Chloride (Saline Flush) 10 ml FLUSH ASDIRECTED PRN PRN Reason: Keep Vein Open Stop: 01/27/19 18:00
--- NOTE | 2019-01-28 11:17 | PCM48HPAN ---
Post Anesthesia Note - EVALUATION WITHIN 48HRS OF ANESTHETIC Vital Signs in Normal Range: Yes Patient Participated in Evaluation: No (Patient discharged. Reviewed with dr. putnam) Respiratory Function Stable: Yes Airway Patent: Yes Cardiovascular Function Stable: Yes Hydration Status Stable: Yes Pain Control Satisfactory: Yes Nausea and Vomiting Control Satisfactory: Yes Mental Status Recovered: Yes Pulse Rate: 82 Resp Rate: 14 Temperature: 98.1 F Blood Pressure: 116/62
[2019-01-29] MEDS ORDERED: Levothyroxine 50 MCG Tab PO SCH (06:00)
== END 2019-01-28 10:25 | disposition home or self-care (01) | DRG 513 ==
LOC: JD.SDS 08:05 → JD.MS 12:00 → EEVIPCON 12:00
PROVIDERS: ADMIT Obstetrics & Gynecology; ATTEND Obstetrics & Gynecology
PROC: 0UT70ZZ Resection of Bilateral Fallopian Tubes, Open Approach (ICD-10-PCS; principal; 2019-01-27)
PROC: 0DNU0ZZ Release Omentum, Open Approach (ICD-10-PCS; principal; 2019-01-27)
PROC: 0UT90ZZ Resection of Uterus, Open Approach (ICD-10-PCS; principal; 2019-01-27)
DX: N92.4 Excessive bleeding in the premenopausal period (principal); Z68.41 Body mass index [BMI] 40.0-44.9, adult; E66.01 Morbid (severe) obesity due to excess calories; N92.6 Irregular menstruation, unspecified; D50.0 Iron deficiency anemia secondary to blood loss (chronic); Z90.49 Acquired absence of other specified parts of digestive tract; Z98.891 History of uterine scar from previous surgery; K66.0 Peritoneal adhesions (postprocedural) (postinfection); Z87.891 Personal history of nicotine dependence; Z88.1 Allergy status to other antibiotic agents; Z88.0 Allergy status to penicillin; Z87.442 Personal history of urinary calculi; Z87.440 Personal history of urinary (tract) infections; F41.9 Anxiety disorder, unspecified; F32.9 Major depressive disorder, single episode, unspecified; E03.9 Hypothyroidism, unspecified; Z98.84 Bariatric surgery status
CPT/HCPCS: 00840; 36415; 84703; 85025; A9270-GY; J0690; J1100; J1170; J1885; J2250; J2270; J2405; J2704; J2710; J3010; J3410; J3490; J7120

== ENCOUNTER 2019-11-02 09:31 | Emergency (ER) | payer BC ==
--- NOTE | 2019-11-02 09:58 | EDM.PDOC ---
<Nga Bucio - Last Filed: 11/02/19 10:09> ED HPI GENERAL MEDICAL PROBLEM - General Chief Complaint: Back Pain or Injury Stated Complaint: LOWER BACK INJURY Time Seen by Provider: 11/02/19 09:38 Source of Information: Reports: Patient History Limitations: Reports: No Limitations - History of Present Illness INITIAL COMMENTS - FREE TEXT/NARRATIVE: Patient is a pleasant 39-year-old female who presents to the ED with complaints of low back pain following a fall yesterday at 3:00 pm. She reports she was heading in to the house to get her daughter when she slipped on ice and fell against the edge of the bumper. She reports she hit the middle of her back on the car and instantly had pain to the lower back. The pain is a constant stabbing sensation that is a 9/10 in severity at time of exam. She visibly looks uncomfortable and notes no position is comfortable. She states if she stays in one position too long it feels like her back "locks" up. She reports tingling to bilateral lower feet since the fall. She tried ibuprofen, ice, and icy hot at home with no relief in pain. She made an appointment with her chiropractor this morning when she was at her appointment she states he evaluated her back and told her she needed to come to the ED for x-rays. She denies chest pain, shortness of breath, and nausea. 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 Right Middle Back Pain Score (Numeric/FACES): 9 - Related Data Allergies Allergy/AdvReac Type Severity Reaction Status Date / Time ciprofloxacin [From Cipro] Allergy Hives Verified 01/26/19 12:20 ciprofloxacin HCl Allergy Hives Verified 01/26/19 12:20 [From Cipro] Penicillins Allergy Hives Verified 01/26/19 12:20 Home Meds: Home Meds Calcium Carb/Vitamin D3/Vit K1 [Calcium + D Soft Chewable Tab] 1 tab PO BID [History] Cyanocobalamin/Folic AC/Vit B6 [Folbee] 1 tab PO DAILY 01/26/19 [History] Ferrous Sulfate [Iron] 325 mg PO DAILY 01/26/19 [History] Multivitamin [Poly-Vitamin] 1 tab PO DAILY 01/26/19 [History] Acetaminophen/oxyCODONE [Percocet 325-5 MG] 2 tab PO Q8H PRN #50 tablet [Rx] Levothyroxine [Synthroid] 50 mcg PO ACBREAKFAST 01/28/19 [History] Gabapentin [Neurontin] 100 mg PO TID 02/12/19 [History] Cyclobenzaprine [Flexeril] 10 mg PO TID PRN #20 tab 11/02/19 [Rx] Hydrocodone/Acetaminophen [Hydrocodon-Acetaminophen 5-325] 1 - 2 each PO Q6HR PRN #20 tablet 11/02/19 [Rx] Past Medical History HEENT History: Reports: None Cardiovascular History: Reports: None Respiratory History: Reports: None Gastrointestinal History: Reports: None Genitourinary History: Reports: Renal Calculus, UTI, Recurrent 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 diab. with other , not this Hematologic History: Reports: Anemia Immunologic History: Reports: None Oncologic (Cancer) History: Reports: None Dermatologic History: Reports: None - Infectious Disease History Infectious Disease History: Reports: Chicken Pox - Past Surgical History Head Surgeries/Procedures: Reports: None HEENT Surgical History: Reports: Tonsillectomy Cardiovascular Surgical History: Reports: None Respiratory Surgical History: Reports: None GI Surgical History: Reports: Appendectomy, Bariatric Procedure, Cholecystectomy , Hernia Repair/Other Female Surgical History: Reports: Section Endocrine Surgical History: Reports: None Neurological Surgical History: Reports: None Musculoskeletal Surgical History: Reports: None Oncologic Surgical History: Reports: None Dermatological Surgical History: Reports: None - History Comment History Comment: 11/07/16 patient current medication list includes vitamens Social & Family History - Family History Family Medical History: Noncontributory - Tobacco Use Smoking Status *Q: Never Smoker Second Hand Smoke Exposure: No - Caffeine Use Caffeine Use: Reports: Coffee - Recreational Drug Use Recreational Drug Use: No ED ROS GENERAL - Review of Systems Review Of Systems: See Below Constitutional: Reports: No Symptoms. Denies: Fever, Chills Respiratory: Reports: No Symptoms. Denies: Shortness of Breath Cardiovascular: Reports: No Symptoms. Denies: Chest Pain Musculoskeletal: Reports: Back Pain (lower back pain that radiates down right leg), Muscle Stiffness (lower back). Denies: Neck Pain Skin: Reports: No Symptoms Neurological: Reports: Paresthesia (bilateral feet), Difficulty Walking (due to pain). Denies: Dizziness, Headache, Syncope, Weakness Psychiatric: Reports: No Symptoms ED EXAM,LOWER BACK PAIN/INJURY - Physical Exam Exam: See Below Exam Limited By: No Limitations General Appearance: Alert, WD/WN, Moderate Distress Respiratory/Chest: No Respiratory Distress, Lungs Clear, Normal Breath Sounds, Chest Non-Tender Cardiovascular: Normal Peripheral Pulses, Regular Rate, Rhythm, No Edema, No Murmur GI/Abdominal: Normal Bowel Sounds, Soft, Non-Tender Back Exam: Normal Inspection, Decreased Range of Motion (lumbar region due to pain), Paraspinal Tenderness (with palpation on bilateral sides of lumbar and sacral spine), Vertebral Tenderness (over lumbar and sacral regions) Extremities: Normal Inspection, No Pedal Edema, Normal Capillary Refill Neurological: Alert, Normal Mood/Affect, Normal Dorsiflexion, Normal Plantar Flexion, Oriented x 3, Other (good and equal sensation to touch in bilateral feet. Pain in lower back with any movement) Psychiatric: Normal Affect, Normal Mood Skin Exam: Warm, Dry, Intact, Normal Color, No Rash Course - Vital Signs Last Recorded V/S: Last Vital Signs Temp 98.0 F 11/02/19 09:39 Pulse 65 11/02/19 09:39 Resp 24 H 11/02/19 09:39 BP 105/79 11/02/19 09:39 Pulse Ox 99 11/02/19 09:39 - Orders/Labs/Meds Orders: Active Orders 24 hr Category Date Time Status Lumbar Spine 2 or 3V [CR] Stat Exams 11/02/19 10:00 Taken Sacrum Coccyx Min 2V [CR] Stat Exams 11/02/19 10:00 Taken Meds: Medications Discontinued Medications Generic Name Dose Route Start Last Admin Trade Name Freq PRN Reason Stop Dose Admin Hydrocodone Bitart/Acetaminophen 2 tab 11/02/19 11:24 11/02/19 11:39 [place] 325-5 Mg PO 11/02/19 11:25 2 tab ONETIME ONE Administration Cyclobenzaprine HCl 10 mg 11/02/19 09:59 11/02/19 10:20 Flexeril PO 11/02/19 10:00 10 mg ONETIME ONE Administration Hydromorphone HCl 1 mg 11/02/19 09:59 11/02/19 10:19 Dilaudid IM 11/02/19 10:00 1 mg ONETIME ONE Administration Ketorolac Tromethamine 60 mg 11/02/19 09:59 11/02/19 10:19 Toradol IM 11/02/19 10:00 60 mg ONETIME ONE Administration Departure - Departure Disposition: Home, Self-Care 01 Clinical Impression: Sacral back pain Fall Qualifiers: Encounter type: initial encounter Qualified Code(s): W19.XXXA - Unspecified fall, initial encounter Low back pain Qualifiers: Chronicity: acute Back pain laterality: bilateral Sciatica presence: without sciatica Qualified Code(s): M54.5 - Low back pain - Discharge Information Prescriptions: Hydrocodone/Acetaminophen [Hydrocodon-Acetaminophen 5-325] 1 - 2 each PO Q6HR PRN #20 tablet PRN Reason: Pain Cyclobenzaprine [Flexeril] 10 mg PO TID PRN #20 tab PRN Reason: Pain Referrals: Lili Nielson, DRIVER SERVICE TECHNICIAN [Primary Care Provider] - 1 Week Forms: ED Department Discharge Additional Instructions: Go home and rest. Ice your back for 15 minutes 3 times per day for 2 days. Take tylenol or motrin for pain. If that does not help, try some hydrocodone or flexeril. Please return if you are worse. Sepsis Event Note - Evaluation Sepsis Screening Result: No Definite Risk - Focused Exam Vital Signs: Vital Signs Temp Pulse Resp BP Pulse Ox 11/02/19 09:39 98.0 F 65 24 H 105/79 99 Date Exam was Performed: 11/02/19 Time Exam was Performed: 10:09 - My Orders Last 24 Hours: My Active Orders 11/02/19 10:00 Lumbar Spine 2 or 3V [CR] Stat Sacrum Coccyx Min 2V [CR] Stat - Assessment/Plan Last 24 Hours: My Active Orders 11/02/19 10:00 Lumbar Spine 2 or 3V [CR] Stat Sacrum Coccyx Min 2V [CR] Stat <Deangelo August - Last Filed: 11/02/19 11:51> Course - Re-Assessments/Exams Free Text/Narrative Re-Assessment/Exam: 11/02/19 11:44 I examined the patient myself and I agree with Nga's assessment and plan. I ordered dilaudid 1mg IM, toradol 60mg IM, flexeril 10mg PO and x-rays. The x-rays of her lumbar spine and sacrum is negative. She needed something more for pain so I ordered some hydrocodone. Departure - Departure Time of Disposition: 11:50 Condition: Good - Discharge Information *PRESCRIPTION DRUG MONITORING PROGRAM REVIEWED*: No *COPY OF PRESCRIPTION DRUG MONITORING REPORT IN PATIENT ROSA: No Sepsis Event Note - Focused Exam Date Exam was Performed: 11/02/19 Time Exam was Performed: 11:44
[2019-11-02] MEDS ORDERED: HYDROmorphone 1 MG/ML Syringe IM ONE (09:59)
[2019-11-02] MEDS ORDERED: Ketorolac 60 MG/2 ML SDV IM ONE (09:59)
[2019-11-02] MEDS ORDERED: Cyclobenzaprine 10 MG Tab PO ONE (09:59)
[2019-11-02] MEDS ORDERED: Acetaminophen/HYDROcodone 325-5 MG Tab PO ONE (11:24)
[2019-11-02 12:02] VITALS: BP 110/67; PULSE 71
--- NOTE | 2019-11-02 12:07 | CR ---
Sacrum and coccyx: Three views of the sacrum and coccyx were obtained. Comparison: No prior sacrum or coccyx study. Sacroiliac joints appear within normal limits. Sacral foramina appear to be patent. No fracture or other bony abnormality is appreciated. Impression: 1. No abnormality is appreciated on three-view sacrum and coccyx study. Diagnostic code #1 This report was dictated in [place] Standard Time
--- NOTE | 2019-11-02 13:33 | CR ---
Lumbar spine: AP, lateral and coned-down lateral views centered to the lumbosacral junction were obtained. Comparison: No prior lumbar spine imaging is available. Disc space narrowing is noted within the lower thoracic spine. Mild disc space narrowing is noted at L1-L2. Other disc spaces within the lumbar spine are preserved. Anterior osteophytes are seen within the lower thoracic spine and at L1-L2. Pedicles as well as the visualized transverse and spinous processes are intact. Sacroiliac joints appear within normal limits. No fracture or subluxation is seen. Impression: 1. Mild degenerative change as noted above. 2. Nothing acute is appreciated on three-view lumbar spine study. Diagnostic code #2 This report was dictated in [place] Standard Time
== END 2019-11-02 12:00 | disposition home or self-care (01) ==
LOC: JD.ED 09:31
DX: M54.5 Low back pain (principal); M53.3 Sacrococcygeal disorders, not elsewhere classified; E03.9 Hypothyroidism, unspecified; D64.9 Anemia, unspecified; Z79.890 Hormone replacement therapy; Z79.899 Other long term (current) drug therapy; Z88.1 Allergy status to other antibiotic agents; Z88.0 Allergy status to penicillin; W01.198A Fall on same level from slipping, tripping and stumbling with subsequent striking against other object, initial encounter
CPT/HCPCS: 72100; 72220; 96372; 99283; A9270; J1170; J1885

== ENCOUNTER 2021-02-17 16:16 | Emergency (ER) | payer BC ==
[2021-02-17] MEDS ORDERED: Famotidine 20 MG/2 ML SDV IVPUSH ONE (16:26)
[2021-02-17] MEDS ORDERED: diphenhydrAMINE 50 MG/ML SDV IVPUSH ONE (16:26)
[2021-02-17] MEDS ORDERED: methylPREDNISolone Sodium Succinate 125 MG/2 ML SDV IVPUSH ONE (16:26)
[2021-02-17] MEDS ORDERED: Sodium Chloride 0.9% 10 ML Syringe FLUSH PRN (16:26)
[2021-02-17] MEDS ORDERED: Sodium Chloride 0.9% 1,000 ML IV ONE (16:26)
[2021-02-17] MEDS ORDERED: Albuterol 0.083% 2.5 MG/3 ML Neb Soln NEB ONE (16:30)
--- NOTE | 2021-02-17 16:35 | EDM.PDOC ---
ED HPI GENERAL MEDICAL PROBLEM - General Chief Complaint: Allergic Reaction Stated Complaint: TROUBLE BREATHING Time Seen by Provider: 02/17/21 16:21 Source of Information: Reports: Patient, RN Notes Reviewed History Limitations: Reports: No Limitations - History of Present Illness INITIAL COMMENTS - FREE TEXT/NARRATIVE: Patient is a 40-year-old female who presents to the ER for evaluation of difficulty breathing. Patient believes she is having allergic reaction, but she is not really sure what she would have come in contact with. Had an instance like this roughly 2 weeks ago, she took some Benadryl it, took the edge off. She is been fine ever since. Note she was on Augmentin for a sinus infection, and just finished a 10-day course. She has had no fevers or chills, cough, she is having some shortness of breath, respiratory wheezing, and some difficulty breathing, she is slightly gasping for air at initial exam. She notes that the symptoms all started when she was driving roughly 10 to 15 minutes prior to coming to the ER. - Related Data Allergies Allergy/AdvReac Type Severity Reaction Status Date / Time ciprofloxacin [From Cipro] Allergy Hives Verified 11/02/19 11:58 ciprofloxacin HCl Allergy Hives Verified 11/02/19 11:58 [From Cipro] Penicillins Allergy Hives Verified 11/02/19 11:58 Home Meds: Home Meds Calcium Carb/Vitamin D3/Vit K1 [Calcium + D Soft Chewable Tab] 1 tab PO BID 01/26/19 [History] Cyanocobalamin/Folic AC/Vit B6 [Folbee] 1 tab PO DAILY 01/26/19 [History] Ferrous Sulfate [Iron] 325 mg PO DAILY 01/26/19 [History] Multivitamin [Poly-Vitamin] 1 tab PO DAILY 01/26/19 [History] Acetaminophen/oxyCODONE [Percocet 325-5 MG] 2 tab PO Q8H PRN #50 tablet 01/28/19 [Rx] Levothyroxine [Synthroid] 50 mcg PO ACBREAKFAST 01/28/19 [History] Gabapentin [Neurontin] 100 mg PO TID 02/12/19 [History] Cyclobenzaprine [Flexeril] 10 mg PO TID PRN #20 tab 11/02/19 [Rx] Hydrocodone/Acetaminophen [Hydrocodone-Acetamin 5-325 mg] 1 - 2 each PO Q6HR PRN #20 tablet 11/02/19 [Rx] EPINEPHrine [Epinephrine] 0.3 mg IJ ASDIRECTED PRN #2 auto.injct 02/17/21 [Rx] predniSONE 20 mg PO ASDIRECTED #15 tab 02/17/21 [Rx] Past Medical History HEENT History: Reports: None Cardiovascular History: Reports: None Respiratory History: Reports: None Gastrointestinal History: Reports: None Genitourinary History: Reports: Renal Calculus, UTI, Recurrent 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 diab. with other , not this Hematologic History: Reports: Anemia Immunologic History: Reports: None Oncologic (Cancer) History: Reports: None Dermatologic History: Reports: None - Infectious Disease History Infectious Disease History: Reports: Chicken Pox - Past Surgical History Head Surgeries/Procedures: Reports: None HEENT Surgical History: Reports: Tonsillectomy Cardiovascular Surgical History: Reports: None Respiratory Surgical History: Reports: None GI Surgical History: Reports: Appendectomy, Bariatric Procedure, Cholecy stectomy, Hernia Repair/Other Female Surgical History: Reports: Section Endocrine Surgical History: Reports: None Neurological Surgical History: Reports: None Musculoskeletal Surgical History: Reports: None Oncologic Surgical History: Reports: None Dermatological Surgical History: Reports: None - History Comment History Comment: 11/07/16 patient current medication list includes vitamens Social & Family History - Family History Family Medical History: No Pertinent Family History - Caffeine Use Caffeine Use: Reports: Coffee ED ROS ALLERGIC REACTION - Review of Systems Review Of Systems: Comprehensive ROS is negative, except as noted in HPI. ED EXAM GENERAL NO PERIP PULSE - Physical Exam Exam: See Below Exam Limited By: No Limitations General Appearance: Alert, Moderate Distress (pt has audible respiratory wheezing and gasping breaths; she talks in broken sentences) Respiratory/Chest: Chest Non-Tender, Respiratory Distress (moderate, audible respiratory wheezing, pt talking in broken sentences), Decreased Breath Sounds (bilaterally), Wheezing (audbile expiratory wheezing) Cardiovascular: Normal Peripheral Pulses, Regular Rate, Rhythm, No Edema Extremities: Normal Inspection, Normal Capillary Refill Neurological: Alert, Oriented, Normal Cognition, No Motor/Sensory Deficits Psychiatric: Normal Affect, Normal Mood Skin Exam: Warm, Dry, Intact, Normal Color, No Rash Course - Vital Signs Last Recorded V/S: Last Vital Signs Temp 96.8 F L 02/17/21 16:29 Pulse 89 02/17/21 16:29 Resp 24 H 02/17/21 16:29 BP 108/75 02/17/21 16:29 Pulse Ox 94 L 02/17/21 16:30 - Orders/Labs/Meds Orders: Active Orders 24 hr Category Date Time Status Peripheral IV Care [RC] . DIRECTED Care 02/17/21 16:26 Ordered RT Aerosol Therapy [RC] ASDIRECTED Care 02/17/21 16:30 Ordered Sodium Chloride 0.9% [Normal Saline] 1,000 ml Med 02/17/21 16:26 Ordered IV ONETIME Sodium Chloride 0.9% [Saline Flush] Med 02/17/21 16:26 Ordered 10 ml FLUSH ASDIRECTED PRN Peripheral IV Insertion Adult [OM.PC] Stat Oth 02/17/21 16:26 Ordered Medication Orders Sodium Chloride (Normal Saline) 1,000 mls @ 500 mls/hr IV ONETIME ONE Stop: 02/17/21 18:25 Last Admin: 02/17/21 16:46 Dose: 500 mls/hr Documented by: LINDSEY Sodium Chloride (Sodium Chloride 0.9% 10 Ml Syringe) 10 ml FLUSH ASDIRECTED PRN PRN Reason: Keep Vein Open Last Admin: 02/17/21 16:35 Dose: 10 ml Documented by: LINDSEY Meds: Medications Generic Name Dose Route Start Last Admin Trade Name Freq PRN Reason Stop Dose Admin Sodium Chloride 1,000 mls @ 500 mls/hr 02/17/21 16:26 02/17/21 16:46 Normal Saline IV 02/17/21 18:25 500 mls/hr ONETIME ONE Administration Sodium Chloride 10 ml 02/17/21 16:26 02/17/21 16:35 Sodium Chloride 0.9% 10 Ml Syringe FLUSH 10 ml ASDIRECTED PRN Administration Keep Vein Open Discontinued Medications Generic Name Dose Route Start Last Admin Trade Name Freq PRN Reason Stop Dose Admin Albuterol 2.5 mg 02/17/21 16:30 02/17/21 16:39 Albuterol 0.083% 2.5 Mg/3 Ml Neb Soln NEB 02/17/21 16:31 2.5 mg ONETIME ONE Administration Diphenhydramine HCl 50 mg 02/17/21 16:26 02/17/21 16:40 Diphenhydramine 50 Mg/Ml Sdv IVPUSH 02/17/21 16:27 50 mg ONETIME ONE Administration Famotidine 20 mg 02/17/21 16:26 02/17/21 16:45 Famotidine 20 Mg/2 Ml Sdv IVPUSH 02/17/21 16:27 20 mg ONETIME ONE Administration Methylprednisolone Sodium Succinate 125 mg 02/17/21 16:26 02/17/21 16:42 Methylprednisolone Sodium Succinate 125 Mg/2 Ml Sdv IVPUSH 02/17/21 16:27 125 mg ONETIME ONE Administration - Re-Assessments/Exams Free Text/Narrative Re-Assessment/Exam: 02/17/21 16:35 Patient presents to the ER for her difficulty breathing so I do believe she is having allergic reaction however I do not know what is the offending agent. Have ordered IV to be placed with Solu-Medrol, Pepcid, Benadryl for initial management, she will be given albuterol nebs x3 for her respiratory difficulty at this time. 02/17/21 17:00 Patient was reassessed at bedside, states she is feeling much better. States that the tip of her tongue feels like it wants to explode, but she is talking in full sentences, and her respiratory wheezing has dramatically improved. We will monitor her for some time, to make sure that her symptoms keep subsiding. 02/17/21 18:08 The patient was reassessed at bedside, states she is feeling dramatically better. She is wishing to go home at this time, this is fine with me I will send her home on a course of prednisone along with a prescription for EpiPen's as this seemed to be some sort of anaphylaxis reaction. Departure - Departure Time of Disposition: 18:09 Disposition: Home, Self-Care 01 Condition: Good Clinical Impression: Anaphylactic reaction Qualifiers: Encounter type: initial encounter Qualified Code(s): T78.2XXA - Anaphylactic shock, unspecified, initial encounter - Discharge Information *PRESCRIPTION DRUG MONITORING PROGRAM REVIEWED*: No *COPY OF PRESCRIPTION DRUG MONITORING REPORT IN PATIENT ROSA: No Instructions: Anaphylactic Reaction, Adult, [id number] Referrals: PCP,None [Primary Care Provider] - Forms: ED Department Discharge Additional Instructions: You were seen in the ER today for your suspected allergic reaction. Etiology of your allergic reaction is unknown at this time. Please go home and try to remember what you could have possibly come in contact with to see if you can pinpoint an allergen. You were given some IV medications to help relieve these symptoms, this seemed to work well for you. This included IV steroids, IV Pepcid, and IV Benadryl, along with some IV fluids. You will be started on a steroid burst, please take as directed until gone. You may take Benadryl 25 mg every 4 hours as needed for further symptomatic relief, along with Pepcid 20 mg twice daily when you are taking the prednisone. You have also been given a prescription for an EpiPen, instruction should be on the box but all you need to do is flipped the top off of the pen, take the pen out of the box, insert the needle into your lateral thigh, and press the autoinjector and then wait about 3 to 5 seconds before taking the EpiPen out of your thigh. If you do happen to use the EpiPen, you should go to the nearest ER, for observation and evaluation as this can have serious cardiac side effects. This medication was electronically sent to the [place] [facility] located in the [employer] store. Please return to the ER at any time if your symptoms change or worsen. Sepsis Event Note (ED) - Focused Exam Vital Signs: Vital Signs Temp Pulse Resp BP Pulse Ox Pulse Ox 02/17/21 16:30 94 L 02/17/21 16:29 96.8 F L 89 24 H 108/75 93 L - My Orders Last 24 Hours: My Active Orders 02/17/21 16:26 Peripheral IV Care [RC] . DIRECTED Sodium Chloride 0.9% [Normal Saline] 1,000 ml IV ONETIME Sodium Chloride 0.9% [Saline Flush] 10 ml FLUSH ASDIRECTED PRN Peripheral IV Insertion Adult [OM.PC] Stat 02/17/21 16:30 RT Aerosol Therapy [RC] ASDIRECTED - Assessment/Plan Last 24 Hours: My Active Orders 02/17/21 16:26 Peripheral IV Care [RC] . DIRECTED Sodium Chloride 0.9% [Normal Saline] 1,000 ml IV ONETIME Sodium Chloride 0.9% [Saline Flush] 10 ml FLUSH ASDIRECTED PRN Peripheral IV Insertion Adult [OM.PC] Stat 02/17/21 16:30 RT Aerosol Therapy [RC] ASDIRECTED
[2021-02-17 18:43] VITALS: BP 128/70; PULSE 88
== END 2021-02-17 18:40 | disposition home or self-care (01) ==
LOC: JD.ED 16:16 → SUPCPDRO 16:16 → JD.ED 18:40
DX: T78.2XXA Anaphylactic shock, unspecified, initial encounter (principal); E03.9 Hypothyroidism, unspecified; D64.9 Anemia, unspecified; Z88.1 Allergy status to other antibiotic agents; Z88.0 Allergy status to penicillin; Z79.899 Other long term (current) drug therapy
CPT/HCPCS: 94640; 96374; 96375; 99284; J1200; J2930; J3490; J7030

== ENCOUNTER 2024-03-09 19:03 | Emergency (ER) | payer OTHER ==
[2024-03-09 20:41] LABS: BASOPHILS PERCENT AUTO 0.3 % (0.0-1.0); EOSINOPHILS ABSOLUTE AUTO 0.1 K/mm3 (0.0-0.4); EOSINOPHILS PERCENT AUTO 1.4 % (0.0-6.0); HEMATOCRIT 43.5 % (37.0-47.0); HEMOGLOBIN 13.8 gm/dl (12.0-16.0); IMMATURE GRAN ABSOLUTE AUTO 0.03 K/mm3 (0.00-0.05); IMMATURE GRAN PERCENT AUTO 0.3 % (0.0-0.4); LYMPHOCYTES ABSOLUTE AUTO 1.6 K/mm3 (1.0-4.8); LYMPHOCYTES PERCENT AUTO 18.2 % (24.0-44.0); MEAN CORPUSCULAR HEMOGLOBIN 26.8 pg (28.0-32.0); MEAN CORPUSCULAR HGB CONC 31.7 g/dl (32.0-36.0); MEAN CORPUSCULAR VOLUME 84.5 fl (83.0-99.0); MONOCYTES ABSOLUTE AUTO 0.7 K/mm3 (0.0-0.8); MONOCYTES PERCENT AUTO 7.9 % (0.0-8.0); NEUTROPHILS ABSOLUTE AUTO 6.3 K/mm3 (1.8-7.7); NEUTROPHILS PERCENT AUTO 71.9 % (41.0-71.0); PLATELET COUNT,PLT 271 K/mm3 (150-400); RED BLOOD CELL COUNT 5.15 M/mm3 (4.10-5.30); WHITE BLOOD CELL COUNT,WBC 8.73 K/mm3 (3.9-11.3)
[2024-03-09 20:53] LABS: HEMOGLOBIN A1C 6.6 %
[2024-03-09 21:28] LABS: A/G RATIO 0.9 (1-2); ALBUMIN 3.4 g/dl (3.4-5.0); ANION GAP 13.9 (5-15); BILIRUBIN TOTAL 0.3 mg/dL (0.2-1.0); BUN/CREATININE RATIO 16.7 (14-18); CALCIUM 9.1 mg/dL (8.5-10.1); CREATININE 0.9 mg/dL (0.55-1.02); EST CRCL DRUG DOSING (CG) 85.97 mL/min; POTASSIUM,K 3.9 mEq/L (3.5-5.1); T4 FREE 1.12 ng/dL (0.76-1.46); TSH 0.967 uIU/mL (0.358-3.74)
[2024-03-09 21:31] LABS: APPEARANCE,URINE CLEAR (Clear); BILIRUBIN,URINE NEGATIVE (Negative); COLOR,URINE YELLOW (Yellow); GLUCOSE,URINE NEGATIVE (Negative); KETONES,URINE NEGATIVE (Negative); LEUKOCYTE ESTERASE,URINE NEGATIVE (Negative); NITRITE,URINE NEGATIVE (Negative); OCCULT BLOOD,URINE NEGATIVE (Negative); PROTEIN,URINE NEGATIVE (Negative)
[2024-03-09 23:03] VITALS: BP 106/73; PULSE 92
== END 2024-03-09 23:02 | disposition home or self-care (01) ==
LOC: JD.ED 19:03
DX: R20.2 Paresthesia of skin (principal); R42 Dizziness and giddiness; G43.909 Migraine, unspecified, not intractable, without status migrainosus; E03.9 Hypothyroidism, unspecified; E11.9 Type 2 diabetes mellitus without complications; E66.9 Obesity, unspecified; Z86.16 Personal history of COVID-19; Z79.899 Other long term (current) drug therapy; Z88.0 Allergy status to penicillin; Z88.1 Allergy status to other antibiotic agents
CPT/HCPCS: 36415; 70450; 70450-26; 80053; 81003; 82947; 83036; 83735; 84439; 84443; 85025; 99285